=== PATIENT | male | born 1975 | race Caucasian/White ===

== ENCOUNTER 2016-07-28 15:55 | Outpatient (CLI) | payer OTHER ==
--- NOTE | 2016-07-28 17:09 | MRI Report ---
EXAM: MRI CERVICAL SPINE WITHOUT CONTRAST EXAM DATE: 07/28/2016 04:24 PM. CLINICAL HISTORY: 40-year-old with neck pain and left C5 radiculopathy COMPARISONS: MR cervical spine 09/27/2014. TECHNIQUE: Multiplanar, multisequence T1-weighted and fluid-sensitive sequences of the cervical spine without contrast. Other: None. FINDINGS: Neurologic Structures: There is flattening of the ventral aspect of the cervical cord seen at C3-C4 a nd C4-C5 that appears similar to MR 09/27/2014. There is questionable T2 hyperintensity intensity seen within the left aspect of the cord at C4-C5 (series 801, image 16) that appears new from 09/27/2014. Alignment: There is reversal of the normal cervical lordosis. No definite spondylolisthesis or scolio tic curvature. Bone Marrow: There are mild endplate changes seen at C3-C4, C4-C5, and C5-C6 with minimal loss of dis k height and disk desiccation. No acute fracture. No abnormal marrow edema. No marrow replacing lesio n. Interspace Levels/Facets: C1-C2: Unremarkable on sagittal sequences. C2-C3: Unremarkable. C3-C4: Small posterior disk protrusion producing moderate spinal canal stenosis. Bilateral uncoverteb ral osteophyte and arthritic facet disease producing moderate to severe left and moderate right neura l foraminal narrowing. Findings appear similar to 09/27/2014. C4-C5: Small to moderate posterior disk protrusion producing moderate to severe spinal canal stenosis . Bilateral uncovertebral osteophyte and arthritic facet disease producing severe bilateral neural fo raminal narrowing. Findings appear similar. C5-C6: Small central disk protrusion producing tqhn-to-utidamtt spinal canal stenosis. Bilateral unco vertebral osteophyte and arthritic facet disease producing mild left and moderate right neural forami nal narrowing. Findings appear similar. C6-C7: Unremarkable. C7-T1: Unremarkable. Musculature: Normal. No edema or fatty atrophy. Other: The paravertebral and prevertebral soft tissues are normal. IMPRESSION: 1. Reversal of the normal cervical lordosis. 2. There is flattening of the ventral aspect of the cervical cord seen at C3-C4 and C4-C5 with questi onable increased T2 signal hyperintensity seen within the left lateral cord at C4-C5 that appears new compared 09/27/2014. Finding may represent cord edema or myelomalacia. 3. Mild multilevel degenerative changes appear similar to 09/27/2014. C3-C4: Moderate spinal canal stenosis. Moderate to severe left and moderate right neural foraminal na rrowing. C4-C5: Moderate to severe spinal canal stenosis. Severe bilateral neural foraminal narrowing. C5-C6: Mild to moderate spinal canal stenosis. Mild left and moderate right neural foraminal narrowin g. [facility] Referring Provider Line: [phone] SITE ID: [id number]
== END 2016-07-28 15:56 | disposition home or self-care (01) ==
LOC: DI 15:55
PROVIDERS: ATTEND Student in an Organized Health Care Education/Training Program
DX: M50.21 Other cervical disc displacement, high cervical region (principal); M47.892 Other spondylosis, cervical region; M50.31 Other cervical disc degeneration, high cervical region
CPT/HCPCS: 72141

== ENCOUNTER 2019-07-26 19:58 | Emergency (ER) | payer OTHER ==
[2019-07-26 20:05] VITALS: BP 175/87
[2019-07-26] MEDS ORDERED: PROPARACAINE 0.5% OPHTH DROPS 15 ML EACHEYE STA (20:12)
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
== END 2019-07-26 21:25 | disposition home or self-care (01) ==
LOC: ED 19:58
DX: S05.12XA Contusion of eyeball and orbital tissues, left eye, initial encounter (principal); S05.02XA Injury of conjunctiva and corneal abrasion without foreign body, left eye, initial encounter; W20.8XXA Other cause of strike by thrown, projected or falling object, initial encounter
CPT/HCPCS: 99282; 99283; J3490